=== PATIENT | female | born 1995 | race Caucasian/White ===

== ENCOUNTER 2024-07-04 01:35 | Emergency (ER) | payer OTHER ==
[~2024-07-04] VITALS: Ht 152.4 cm; Wt 55.0 kg
[2024-07-04 01:56] VITALS: O2SAT 99
[2024-07-04 02:02] VITALS: BP 127/88; PULSE 72; TEMP 36.83628; O2SAT 99
[2024-07-04 03:25] VITALS: RESP 17
== END 2024-07-04 04:00 | disposition home or self-care (01) ==
LOC: ER 01:35
DX: S83.91XA Sprain of unspecified site of right knee, initial encounter (principal); W01.0XXA Fall on same level from slipping, tripping and stumbling without subsequent striking against object, initial encounter; Y93.89 Activity, other specified; Y92.89 Other specified places as the place of occurrence of the external cause; Y99.8 Other external cause status
CPT/HCPCS: 73564; 99283